=== PATIENT | female | born 1990 | race Caucasian/White ===

== ENCOUNTER 2017-08-25 11:54 | Emergency (ER) | payer OTHER ==
[2017-08-25 12:04] VITALS: BP 104/65; PULSE 89; RESP 20; TEMP 97.9
--- NOTE | 2017-08-25 12:31 | ED ---
Skin/Abscess/FB HPI - General Chief complaint: Extremity Injury, Upper Stated complaint: spider bites Time Seen by Provider: 08/25/17 12:05 Source: patient Mode of arrival: ambulatory Limitations: no limitations - History of Present Illness Initial comments: Patient is a 27-year-old female with no established primary care physician, presenting to the emergency department with chief complaint of "spider bites"to her right upper extremity. Patient states she currently lives in a drug rehab facility and states that even though they have been spraying for bugs she still got bit about 3 days ago. Patient states that this morning she noticed the inner aspect of her forearm was warm and swollen. Patient denies chills, fevers, nausea, vomiting, shortness of breath, chest pain, or abdominal pain. Patient states she has a previous history of MRSA infection. Patient denies being on antibiotics in the last 30 days. No treatment prior to arrival. In addition, patient also complains of vaginal irritation, burning, and thin creamy vaginal discharge. Patient states symptoms have been ongoing for approximately 3 weeks. Patient states she has had similar symptoms in the past where she was diagnosed with bacterial vaginitis. - Related Data Previous Rx's Medication Instructions Recorded Sulfamethox-Tmp 800-160Mg [Bactrim 1 tab PO Q12HR #20 tab 08/25/17 DS 800-160 mg] metroNIDAZOLE [Flagyl] 500 mg PO BID #14 tab 08/25/17 Allergies Allergy/AdvReac Type Severity Reaction Status Date / Time nitrofurantoin AdvReac Rash/Hives Verified 08/25/17 11:59 [From Macrobid] Review of Systems ROS Statement: Those systems with pertinent positive or pertinent negative responses have been documented in the HPI. ROS Other: All systems not noted in ROS Statement are negative. Past Medical History Additional Past Medical History / Comment(s): liver failure. hip dysplasia History of Any Multi-Drug Resistant Organisms: MRSA Date of last positivie culture/infection: 2010 Past Surgical History: No Surgical Hx Reported Past Psychological History: Anxiety, Bipolar, Depression, Panic Disorder, PTSD Smoking Status: Current every day smoker Past Alcohol Use History: Abuse Past Drug Use History: Prescription Drug Abuse General Exam - General Exam Comments Initial Comments: GENERAL: Pt awake and alert, well-appearing, well-nourished, and in no acute distress. HEAD: Atraumatic, normocephalic. EYES: Pupils equal, round, sclera anicteric, conjunctiva are normal. ENT: Oropharynx clear without exudates. Moist mucous membranes. NECK:Normal range of motion, supple without lymphadenopathy or JVD. LUNGS: Breath sounds clear to auscultation bilaterally. No wheezes, rales, or rhonchi. HEART: Heart S1, S2, no S3 or S4. Regular rate and rhythm. No murmurs, rubs or gallops. ABDOMEN: Soft, nontender, nondistended, normoactive bowel sounds. No guarding, no rebound. No masses or organomegaly appreciated. MUSCULOSKELETAL: Normal ROM, no tenderness. Strength 5/5. EXTREMITIES: 2+ peripheral pulses. No edema, clubbing or cyanosis. No calf tenderness. NEUROLOGICAL: Pt oriented x 3. Cranial nerves II through XII grossly intact. Strength and sensation grossly intact. PSYCH: Normal mood, normal affect. SKIN: Numerous insect bites noted to inner aspect of right forearm with one area noted to be erythematous, warm to touch, and painful. Mild induration. No fluctuance noted. Limitations: no limitations Course Vital Signs 08/25/17 11:59 Temperature 97.9 F Pulse Rate 89 Respiratory 20 Rate Blood Pressure 104/65 O2 Sat by Pulse 99 Oximetry Medical Decision Making - Medical Decision Making 1. Cellulitis to right forearm suspect secondary to insect bite. Patient placed on Bactrim by mouth twice a day 10 days. Patient instructed to return to the emergency department if symptoms do not improve or get worse over neck 24 -48 hours. 2. Vaginal discharge described as thin, euceda-white suspect secondary to bacterial vaginitis. Patient has had similar infection in past. Patient placed on Flagyl 500 mg by mouth twice a day 7 days. Patient instructed to follow-up with primary care physician if symptoms do not improve or get worse. Patient instructed to refrain from alcohol. - Lab Data Lab Results 08/25/17 Range/Units 12:25 Urine HCG, Qual Not Detected (Not Detectd) Disposition Clinical Impression: Cellulitis of right upper arm, Vaginal discharge Disposition: HOME SELF-CARE Condition: Good Instructions: Bacterial Vaginosis (ED), Cellulitis (ED) Additional Instructions: Finish antibiotics as prescribed. If redness, swelling, discharge from wound increases after 24 hours or if you experience fevers, chills, nausea, vomiting, or other concerning symptoms please return to the emergency department. Apply warm compresses to light 4-5 times a day. Elevate arm and rest. No alcohol while taking Flagyl. Avoid douching and use sanitary napkins instead of tampons. Patient follow-up with a primary care physician as directed. Prescriptions: metroNIDAZOLE [Flagyl] 500 mg PO BID #14 tab Sulfamethox-Tmp 800-160Mg [Bactrim DS 800-160 mg] 1 tab PO Q12HR #20 tab Referrals: None,Stated [Primary Care Provider] - 1-2 days Time of Disposition: 12:31 (May discharge if test negative)
== END 2017-08-25 13:15 | disposition home or self-care (01) ==
LOC: EC 11:54
DX: S50.861A Insect bite (nonvenomous) of right forearm, initial encounter (principal); L03.113 Cellulitis of right upper limb; N89.8 Other specified noninflammatory disorders of vagina; F17.200 Nicotine dependence, unspecified, uncomplicated; Z32.02 Encounter for pregnancy test, result negative; Z88.1 Allergy status to other antibiotic agents; W57.XXXA Bitten or stung by nonvenomous insect and other nonvenomous arthropods, initial encounter
CPT/HCPCS: 81025; 99283